=== PATIENT | female | born 1975 | race African-American/Black ===

== ENCOUNTER 2018-01-06 16:52 | Day surgery (SDC) | payer OTHER ==
[2018-01-03 17:06] LABS: Absolute Monocytes 0.4 K/uL (0.1-1.3); Absolute Neutrophil 3.1 K/uL (1.8-8.0); Eosinophils % 3.8 % (0-4.4); Hematocrit 32.8 % (36.0-45.0); Lymphocytes % 35.1 % (15.3-44.8); MCH 14.8 pg (27.0-35.0); MCV 56.2 fL (80-100); MPV 10.2 fL (7.6-11.3); Monocytes % 7.4 % (3.3-12.3); RBC Red Blood Cell Count 5.84 M/uL (3.86-4.86)
[2018-01-03 17:11] LABS: BUN Blood Urea Nitrogen 7 mg/dL (6-20); Bicarbonate 26 mEq/L (21-31); Glomerular Filtration Rate > 90 mL/min (=/>90); Glucose Level 107 mg/dL (65-120); Potassium 3.9 mEq/L (3.6-5.0); Sodium Level 140 mEq/L (135-145)
[2018-01-03 17:36] LABS: Urine Appearance CLEAR; Urine Bilirubin NEGATIVE (NEG); Urine Blood 3+ (NEG); Urine Color YELLOW; Urine Glucose NEGATIVE (NEG); Urine Protein TRACE (NEG); Urine Specific Gravity >=1.030 (1.005-1.030)
[2018-01-03 17:41] LABS: Urine Microscopic Reflex ORDER UMIC
[2018-01-03 18:15] LABS: Urine Bacteria <20 /HPF (<20); Urine Culture Reflex Order NOT NEEDED; Urine Mucus SLIGHT /HPF (NONE SEEN); Urine RBC >50 /HPF (NONE SEEN)
[2018-01-03 19:38] LABS: Platelet Estimate ADEQ
[2018-01-03 19:39] LABS: Anisocytosis 3+; Blood Morphology Comment NOTED (NOT SEEN); Hypochromasia 3+; Ovalocytes 1+
[2018-01-06] MEDS: NA CHLORIDE 0.9% 1,000 ML ONE ×2 (07:31→07:55)
[2018-01-06] MEDS: CEFAZOLIN/SWI 1gm 1 GM/10 ML SYR ONE ×2 (07:31→07:40)
[2018-01-06] MEDS: MEPERIDINE HCL 50 MG/ML AMP ONE ×2 (12:41→12:47)
[2018-01-06 13:24] LABS: Hematocrit 31.6 % (36.0-45.0)
[2018-01-06 15:33] LABS: Hematocrit 31.9 % (36.0-45.0)
[2018-01-06 16:00] VITALS: O2SAT 99
[~2018-01-06 16:52] MED LIST: ALBUMIN HUM 5% 250 ML IV ONE; CEFAZOLIN SODIUM 1 GM/VIAL ONE; DEXAMETHASONE 10 MG/ML VIAL ONE; FENTANYL CITR 100 MCG/2 ML ONE; FENTANYL CITR 250 MCG/5 ML ONE; GLYCOPYRROLATE 0.2 MG/ML SYR ONE; HYDROCODONE/APAP 5/325 MG TAB ONE; IBUPROFEN 200 MG TAB PO ONE; KETOROLAC 30 MG/ML INJ ONE; LABETALOL 20 MG/4ML SYRINGE IV ONE; LIDOCAINE 2% MPF 5 ML VIAL ONE; MEPERIDINE HCL 25 MG/0.5 ML ONE; MIDAZOLAM HCL 2 MG/2 ML INJ ONE; MORPHINE 10 MG/ML VIAL ONE; Mastisol Adhesive Liq ONE; NA CHLORIDE 0.9% 1,000 ML ONE; NEOSTIGMINE 1 MG/ML -5 ML SYRINGE ONE; ONDANSETRON 4 MG/2 ML VIAL ONE; PROPOFOL 200 MG/20 ML VIAL IV ONE; ROCURONIUM 50 MG/5 ML VIAL IV ONE; Ringers Lactate 1,000 ML IV ONE; SCOPOLAMINE HYDROBROMIDE PATCH TD ONE
[2018-01-06] MEDS ORDERED: IBUPROFEN 200 MG TAB PO PRN (17:17)
[2018-01-06] MEDS ORDERED: PROMETHAZINE 25 MG/ML VIAL IV PRN (17:18)
[2018-01-06] MEDS ORDERED: PROMETHAZINE 25 MG TABLET PO PRN (17:18)
[2018-01-06] MEDS ORDERED: MEPERIDINE HCL 50 MG/ML AMP IV PRN (17:19)
[2018-01-06] MEDS ORDERED: HYDROCODONE/APAP 5/325 MG TAB PO PRN ×2 (17:20)
[2018-01-06 17:30] VITALS: BMI 29.0
[2018-01-06 21:32] LABS: Hematocrit 33.7 % (36.0-45.0)
[2018-01-07 03:28] LABS: Hematocrit 30.1 % (36.0-45.0)
--- NOTE | 2018-01-07 05:24 | OP ---
Date of Procedure: 01/06/2018 Surgeon: Tiffany Hall MD Preoperative Diagnoses: Heavy menstrual bleeding, large fibroids, severe anemia, chronic blood loss anemia. Postoperative Diagnoses: Heavy menstrual bleeding, large fibroids, severe anemia, chronic blood loss anemia, and bilateral tubo-ovarian adhesions to the sigmoid colon and omental adhesions to the anter ior abdominal wall. Procedures Performed: Total laparoscopic hysterectomy, bilateral salpingectomy, lysis of omental and sigmoid adhesions from the tubes and ovaries, mini laparotomy to remove the uterine specimen using m anual morcellation in a bag, and cystoscopy. Specimens: Uterus and tubes. Complications: No complications. Drains: No drains. Estimated Blood Loss: 300. One unit of PRBC given since the patient's baseline hemoglobin was 8 g. Urine Output: 400 mL. Condition: Stable. Findings: There were adhesions of the omentum to the anterior abdominal wall and immediately inferio r to the umbilicus in the midline, then there were adhesions of the tubes and ovaries, dense between the tube and ovary and ovary and the lateral wall as well as the sigmoid colon. The entire cul-de-sa c had dense adhesions and all these adhesions had to be taken down even before the procedure was init iated. Manual morcellation was performed in a bag without any problems. The ovaries were retained. Cystosc opy of both ureteric orifices was patent. No evidence of any injury. Procedure In Detail: After informed consent was verified, the patient was taken back to the OR. Aft er 1 g of Ancef was given, she was placed in a dorsal lithotomy position. General anesthesia was ind uced. SCDs were started. The patient was placed in Juan Luis stirrups and pelvic exam performed, uterus about 18 weeks' size, mobile, appeared to have free space on both the lateral aspects as well as the cul-de-sac, so plan was to perform laparoscopic hysterectomy. Abdomen, vulva, vagina, and perineum were prepped and draped in a sterile fashion. Garcia was placed to drain the bladder and attached to cysto tubing for retrograde filling to an LR bag, emptied 300. A large VCare was fixed into place once a speculum was used to expose the cervix and anterior lip gra sped with 2 Allis clamps. Then, all instruments were removed and this area was then draped. A 1 cm supraumbilical incision was made with the scalpel using the open laparoscopy technique. Fasci a was visualized, incised, and tagged on each side. The peritoneum was opened up and the peritoneal entry with S retractors was used to position the Lovely. Site of entry was checked and was normal. Liver appeared to be unremarkable. On T-michell, there was a large uterus that was visible right there. Then, she also had omental adhesions below the umbilicus and these had to be taken down. So, a 5 m m right lower quadrant port was placed using the 5-mm LigaSure through the center and the camera thro ugh the left port. The adhesions were taken down in a systematic fashion with the help of scissors a nd by bipolar LigaSure. A 5 mm left lower quadrant and 10 mm suprapubic ports were placed under direct vision. The ureters w ere checked on both sides. They did not have any appearance of displacement; however, there were adh esions on both sides. In order for me to even visualize the ureter on the left side, I had to take d own the adhesions of the tube and the ovary. So, a 5 mm right lower quadrant port was placed. Obvio usly, after all the ports were placed, the adhesions were taken down by push-spread technique, holdin g the adhesion up along with the tube and cutting down with scissors. Sharp dissection was performed to separate this from the posterior wall of the uterus, lateral wall of the pelvis, and medially to the sigmoid colon. Once these were taken down on the left side, then the ureter was visualized and t hen we moved on to the opposite side. Then, here the tube was picked up. The adhesions were taken d own sharply with the help of scissors as well as the ovary picked up and the adhesions taken down fro m the lateral aspect of the pelvic sidewall and posterior aspect of the broad ligament. There were a dhesions in posterior cul-de-sac to the sigmoid colon. These were not taken down yet. Once the uret er was visualized on the right lateral wall, then we went on to start the hysterectomy after visualiz ing the anterior and posterior cuff. The posterior cuff adhesions were taken down partly with the he lp of push-spread technique and sharp laparoscopic scissors, but since there was good visualization t ill that aspect, I did spontaneously started the hysterectomy. A 5-mm LigaSure was taken. The left round ligament was divided and cut. The mesosalpinx was taken d own from the distal fallopian and the fimbriated end of the tube and the entire tube was dissected an d given out in 2 separate segments. Then, the utero-ovarian ligament was lifted up, cauterized, cut. The rest of the mesosalpinx was cauterized and cut. The anterior leaf of the broad ligament was ra ised to raise the bladder flap all around. Posteriorly, the bladder flap was raised to the level of the left uterosacral ligament and left here, since there were dense adhesions and this was difficult to dissect, but the vessels were skeletonized through the broad ligament with the LigaSure and well v isualized. On the opposite side, the right utero-ovarian ligament was first taken down, then the tub e and the mesosalpinx were cut. Then, the round ligament was taken down. Here, there was some bleed ing from the base of the round ligament. However, after taking the round ligament down from top down , this bleeding had stopped. Then, after the anterior repair was opened up, the anterior peritoneum spread apart. With push-spread technique gently, the bladder flap on the opposite side was connected . Posteriorly, the incision was carried to the right uterosacral easily without any problems the peritoneum. However, on the left side there were more adhesions. This made it difficult for me to just dissect the peritoneum. However, this was done to the level of the uterosacral so that the ureter would fall away. Once all this was nicely laid out, then anterior vaginal wall was incised. The areolar tissue in the anterior vaginal wall was cauterized with the monopolar and got into the ve sicovaginal space. Once this was entered, the bladder was pushed down inferiorly about 3 cm to expos e the cuff. The vessels on both sides were isolated and identified. Then with the help of the monopolar, I was a ble to make a window and then the vessels were taken down on the right side first in multiple bites. Then, on the left side, similar attempt was done. However, after the uterine vessel was taken down, there was more pushing and retraction probably due to the size of the vessels, likely the vessels op ened up, so these were picked up and two 5 mm clips were placed from medial to lateral and there was excellent hemostasis. After this, this is where blood loss happened. On the right side, the cardinal ligaments were taken down as well as the uterosacral attachment and o n the left side, the cardinal ligaments were taken down with the help of the LigaSure in small bites. Once all the vessels were taken down, did have a good visualization of the entire cuff, so this was opened up with the help of a monopolar hook blade. The specimen detached and placed in the right lo wer quadrant. The vaginal cuff was thoroughly irrigated and suctioned. The left tube was already re moved, so the attention was directed to remove the right tube. Once this tube was held up and entire ly removed from its fimbriated end to the distal part of where the dissection was performed, then thi s was removed, both ovaries appeared to be completely unremarkable. Everything else looked completel y hemostatic. There was a small clot on the right lateral wall; however, this on multiple attempts t o irrigate and remove the clot did not rebleed. The vaginal cuff was closed with the help of simple 0 Vicryl stitches on both edges and 3 figure-of-e ights in the middle including healthy posterior wall and anterior wall and [id number]-[id number] without c ausing strangulation. Once these were all done, there was excellent support of the vaginal cuff. A cystoscopy was performed with a 30-degree lens, normal saline, and 17-Mohawk sheath. Both ureteric orifices were well visualized and there were good streams of urine from both. No evidence of any tr auma to the bladder. So, at this point, vaginal morcellation was done. The bag was inserted for vaginal morcellation. The bag was inserted after opening of the skin incision. Vaginal incision and the abdominal incision were extended from 1 to 3 cm. The bag was inserted through here in the suprapubic area. Then, the trocar was replaced. Then, insufflation was maintained and the specimen was manipulated into the bag and the rim of the bag was pulled out after the trocar was removed at the suprapubic site. The trocars were all removed under direct vision. Fascia at the umbilicus closed with 0 Vicryl in a fekhhg-gd-iimpt fashion. All the skin incisions closed with the help of interrupted 4-0 Vicryl sutur es. In the suprapubic area, the incision on the fascia was extended as well as the peritoneum. Then, the bag was turned down using the skin guard. We went on to do an open morcellation through the mini-la parotomy incision. All the specimen was removed. There was a lot of blood contained within the uter us as well, probably at least 300 to 500 mL. The specimen was once removed, the bag was removed. The fascia was closed with 0 Vicryl in a figure- of-eight fashion after closing the peritoneum with 3-0 Vicryl in a continuous running fashion. The s kin closed with continuous 4-0 Vicryl sutures and interrupted 4-0 Vicryl sutures with all over the in cisions. Instrument, needle, and sponge counts were done after the Garcia, VCare bulb, and the vagina l bulb were removed. They were correct x3. She tolerated the procedure well. She was recovered fro m anesthesia and taken to PACU in stable condition. She will follow up with me in 1 week. She got 1 unit of blood transfusion and 400 cc of urine output. ROHAN/RUBÉN Voice ID: [id number] Report ID: [id number]
[2018-01-07 08:02] VITALS: BP 116/79; TEMP 98.3
== END 2018-01-07 07:50 | disposition home or self-care (01) ==
LOC: OP 16:52 → 2ND-WC 16:52 → OP 01-07 07:50
PROVIDERS: ATTEND Obstetrics & Gynecology
PROC: 0UT94ZZ Resection of Uterus, Percutaneous Endoscopic Approach (ICD-10-PCS; 2018-01-06)
PROC: 0UT74ZZ Resection of Bilateral Fallopian Tubes, Percutaneous Endoscopic Approach (ICD-10-PCS; 2018-01-06)
PROC: 0DNW4ZZ Release Peritoneum, Percutaneous Endoscopic Approach (ICD-10-PCS; 2018-01-06)
PROC: 30233N1 Transfusion of Nonautologous Red Blood Cells into Peripheral Vein, Percutaneous Approach (ICD-10-PCS; principal; 2018-01-06 07:30)
DX: N92.1 Excessive and frequent menstruation with irregular cycle (principal); D25.9 Leiomyoma of uterus, unspecified; D64.9 Anemia, unspecified; K66.0 Peritoneal adhesions (postprocedural) (postinfection); N83.8 Other noninflammatory disorders of ovary, fallopian tube and broad ligament; I10 Essential (primary) hypertension; Z83.3 Family history of diabetes mellitus
CPT/HCPCS: 36415; 36430; 80048; 81003; 81015; 81025; 85014; 85018; 85025; 86850; 86900; 86901; 88307; J0690; J1100; J2175; J2250; J2405; J2710; J3010; J7030; P9016; P9045

== ENCOUNTER 2021-01-15 22:51 | Emergency (ER) | payer OTHER ==
--- OUTSIDE RECORDS SUMMARY | 2021-01-15 22:54 | XMS REPORT | Continuity of Care Document ---
:1975 Author Organization [facility] t Address [address] [place] [address] [place] [id number] Care Team Providers Name Role Phone Ernie LECHUGA, K.H. Attending Clinician Problems This patient has no known problems. Allergies, Adverse Reactions, Alerts This patient has no known allergies or adverse reactions. Medications This patient has no known medications. Procedures This patient has no known procedures. Encounters Start End Encounter Admission Attending Care Care Encounter Source Date/Time Date/Time Type Type Clinicians Facility Department ID 2020-11-12 2020-11-12 Office Ernie LALALA [id number] 13:52:05 14:36:36 Visit Linda Castillo [id number] [place] [id number] [place] [id number] [place] 0[address] Building Results This patient has no known results.
[2021-01-16] MEDS ORDERED: IBUPROFEN 400 MG TAB ONE (00:36)
[2021-01-16] MEDS ORDERED: LIDOCAINE 1% W/EPI 1:100,000 MDV 20 ML VIAL ONE (00:36)
[2021-01-16] MEDS ORDERED: ACETAMINOPHEN 500 MG TAB ONE (00:42)
[2021-01-16 00:54] LABS: Absolute Lymphocytes (CBC) 1.2 K/uL (0.7-4.9); Basophils % 0.5 % (0-1.3); Hematocrit 39.3 % (36.0-45.0); Lymphocytes % 20.1 % (15.3-44.8); MPV 10.2 fL (7.6-11.3); RBC Red Blood Cell Count 5.51 M/uL (3.86-4.86)
[2021-01-16 01:05] LABS: ALT/SGPT 23 U/L (12-78); AST/SGOT 14 U/L (15-37); Albumin 3.5 g/dL (3.4-5.0); Alkaline Phosphatase 48 U/L (45-117); BUN Blood Urea Nitrogen 7 mg/dL (7-18); Bicarbonate 27 mmol/L (21-32); Bilirubin Total 0.2 mg/dL (0.2-1.0); Glucose Level 103 mg/dL (74-106); Potassium 3.8 mmol/L (3.5-5.1); Protein, Total 7.7 g/dL (6.4-8.2); Sodium Level 146 mmol/L (136-145)
--- NOTE | 2021-01-16 01:19 | EDPHYS ---
Physician Documentation [facility] Name: Di Wynn Age: 45 yrs Sex: Female : 1975 Arrival Date: 01/15/2021 Time: 22:52 Bed 3 Private MD: ED Physician Vivek Ashford HPI: 01/15 23:34 This 45 yrs old Black Female presents to ER via Wheelchair with complaints of Head jmm Injury With LOC-Adult, Fall Injury, Laceration To Head. 23:34 The patient or guardian reports injury. Onset: The symptoms/episode began/occurred jmm acutely, just prior to arrival. Associated signs and symptoms: Loss of consciousness: This patient experience a loss of consciousness, Pertinent positives: patient admits to or smells of alcohol consumption, Pertinent negatives: the patient has not experienced a loss of conciousness. The patient has not experienced similar symptoms in the past. ROUTE AIDE: 23:26 LMP N/A - Hysterectomy em Historical: - Allergies: 23:26 No Known Allergies; em - PMHx: 23:26 Hypertension; em - PSHx: 23:26 Hysterectomy; em - Immunization history:: Last tetanus immunization: up to date. - Social history:: Smoking status: Patient denies any tobacco usage or history of. ROS: 23:34 Constitutional: Negative for fever, chills, and weight loss, Cardiovascular: Negative jmm for chest pain, palpitations, and edema, Respiratory: Negative for shortness of breath, cough, wheezing, and pleuritic chest pain. 23:34 Neuro: Positive for headache. 23:34 All other systems are negative. Exam: 23:34 Eyes: EOMI, no conjunctival erythema appreciated ENT: Moist Mucus Membranes Neck: jmm Trachea midline, Supple Chest/axilla: Normal chest wall appearance and motion. Cardiovascular: Regular rate and rhythm. No edema appreciated Respiratory: Normal respirations, no respiratory distress appreciated Abdomen/GI: Non distended, soft Back: Normal ROM Skin: General appearance color normal MS/ Extremity: Moves all extremities, no obvious deformities appreciated, no edema noted to the lower extremities Neuro: Awake and alert, normal gait Psych: Behavior is normal, Mood is normal, Patient is cooperative and pleasant 23:34 Head/face: Noted is a laceration(s), that is jagged, 2 cm(s). Vital Signs: 23:23 Pulse 94; Resp 18; Temp 98.5; Pulse Ox 99% on R/A; Weight 84.82 kg; Height 5 ft. 2 in. em (157.48 cm); Pain 7/10; 01/16 00:15 BP 131 / 90; Pulse 90; Resp 16; Pulse Ox 98% ; rr5 00:42 BP 131 / 90; Pulse 84; Resp 14; Pulse Ox 100% on R/A; rv 02:28 BP 156 / 94; Pulse 80; Resp 15; Temp 98.3; Pulse Ox 96% ; rr5 04 23:23 Body Mass Index 34.20 (84.82 kg, 157.48 cm) em Luis Antonio Coma Score: 00:05 Eye Response: spontaneous(4). Verbal Response: oriented(5). Motor Response: obeys rr5 commands(6). Total: 15. 02:28 Eye Response: spontaneous(4). Verbal Response: oriented(5). Motor Response: obeys rr5 commands(6). Total: 15. Trauma Score (Adult): 02:28 Eye Response: spontaneous(1); Verbal Response: oriented(1); Motor Response: obeys rr5 commands(2); Systolic BP: > 89 mm Hg(4); Respiratory Rate: 10 to 29 per min(4); Luis Antonio Score: 15; Trauma Score: 12 MDM: 01/15 23:[address] [facility] 01/16 01:15 Data reviewed: vital signs, nurses notes. Counseling: I had a detailed discussion with [facility] the patient and/or guardian regarding: the historical points, exam findings, and any diagnostic results supporting the discharge/admit diagnosis, radiology results, the need to transfer to another facility. ED course: I discussed the patient with Neurosurgery at [facility] whom accepted admission. . 01/16 00:21 Order name: CBC with Diff; Complete Time: 01:19 [facility] 01/16 00:21 Order name: CMP; Complete Time: 01:19 [facility] 01/16 00:23 Order name: Type And Screen; Complete Time: 01:39 [facility] 01/16 01:28 Order name: Urine --Ancillary (enter results) tt3 01/16 01:28 Order name: Urine Dipstick-Ancillary [facility] 01/15 23:34 Order name: CT Head C Spine [facility] 01/16 00:21 Order name: Saline Lock; Complete Time: 00:40 [facility] 01/16 02:21 Order name: Alcohol Serum/Plasma [facility] 01/16 02:30 Order name: SARS-COV-2 RT PCR [facility] 01/16 02:30 Order name: ETOH Level [facility] 01/16 01:08 Order name: Suture Tray at Bedside; Complete Time: 01:08 rr5 01/16 01:08 Order name: Dressing - Wound; Complete Time: :08 rr5 01/16 01:08 Order name: Gloves, Sterile; Complete Time: :08 rr5 Administered Medications: 00:40 Drug: Tylenol 1000 mg Route: PO; rr5 01:40 Follow up: Response: No adverse reaction rr5 01:08 Drug: Lidocaine-Epinephrine -1%: (1:100,000) 10 ml {Note: given by gabi MAGDALENO.} Volume: 20 rr5 ml; Route: Infiltration; 02:00 Follow up: Response: No adverse reaction rr5 Disposition: 08:21 Co-signature as Attending Physician, Vivek Ashford MD. debby Disposition: 01/16/21 01:18 Transfer ordered to [facility]. Diagnosis is Subarachnoid Hermorrhage. - Reason for transfer: Higher level of care. - Accepting physician is [facility] Neurosurgery. - Condition is Stable. - Problem is new. - Symptoms are unchanged. Signatures: Dispatcher [employer] Vivek Chau MD MD pkl Mickail, Joel, PA PA Matt Crook, RN RN Charles Carballo, RN RN rr5 Corrections: (The following items were deleted from the chart) 01:48 00:40 CORONAVIRUS+MR.LAB.BRZ ordered. [facility] 02:32 01:18 01/16/2021 01:18 Transfer ordered to [facility]. Diagnosis is Subarachnoid rr5 Hermorrhage. Reason for transfer: Higher level of care. Accepting physician is [facility] Neurosurgery. Condition is Stable. Problem is new. Symptoms are unchanged. [facility]
--- NOTE | 2021-01-16 01:19 | ER ---
Nurse's Notes [facility] Name: Di Wynn Age: 45 yrs Sex: Female : 1975 Arrival Date: 01/15/2021 Time: 22:52 Bed 3 Private MD: Diagnosis: Subarachnoid Hermorrhage Presentation: 01/15 23:23 Chief complaint: Patient states: reports losing footing and fell and hit back of head, em pt does recall events, bystanders reports LOC of 5 seconds, denies N/V. Coronavirus screen: Client denies travel out of the [place] in the last 14 days. Ebola Screen: Patient negative for fever greater than or equal to 101.5 degrees Fahrenheit, and additional compatible Ebola Virus Disease symptoms Patient denies exposure to infectious person. Patient denies travel to an Ebola-affected area in the 21 days before illness onset. No symptoms or risks identified at this time. Initial Sepsis Screen: Does the patient meet any 2 criteria? No. Patient's initial sepsis screen is negative. Does the patient have a suspected source of infection? No. Patient's initial sepsis screen is negative. Risk Assessment: Do you want to hurt yourself or someone else? Patient reports no desire to harm self or others. Onset of symptoms was January 15, 2021. 23:23 Method Of Arrival: Wheelchair em 23:23 Acuity: WAI 3 em 01/16 00:05 Care prior to arrival: None. Mechanism of Injury: Fall from standing position. Trauma rr5 event details: Injury occurred in the [facility], Injury occurred: at home. Injury occurred: January 16, 2021. 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 - Social history:: Smoking status: Patient denies any tobacco usage or history of. Screenin/08 00:10 Abuse screen: Denies threats or abuse. Denies injuries from another. Nutritional rr5 screening: No deficits noted. Tuberculosis screening: No symptoms or risk factors identified. Fall risk At risk due to injury, Intervention for positive screen: ED Physician notified. 00:10 Exposure risk/Travel Screening: None identified. rr5 01:10 Fall Risk Fall in past 12 months (25 points). IV access (20 points). Mental Status- rr5 Oriented to own ability (0 pts). Total Garcias Fall Scale indicates High Risk Score (45 or more points). Fall prevention measures have been instituted. Side Rails Up X 2 Frequent Obs/Assessments Occuring Family Present and informed to notify staff if the need to leave the bedside As available patient and family educated on Fall Prevention Program and Strategies. Primary Survey: 00:05 NO uncontrolled hemorrhage observed. A: The patient is alert. Airway: patent, Oral rr5 cavity: clear, gag reflex present, Trachea midline. 00:05 Breathing/Chest: Respiratory pattern: regular, Respiratory effort: spontaneous, rr5 unlabored, Breath sounds: clear, Chest inspection: symmetrical rise and fall of the chest. Circulation: Skin color: pink. Disability Alert. Exposure/Environment: There is no evidence of uncontrolled external bleeding. Obvious injury(ies) are noted at this time: lacerated wound back of the head A warming method has been applied: A warm blanket has been provided to the patient. 00:42 Reassessment Airway Airway Patent Breathing/Chest Respiratory pattern Regular rr5 Respiratory effort Spontaneous Unlabored Chest inspection Symmetrical Circulation Pulses Palpable Color [place] Disability Alert. Secondary Survey: 00:30 HEENT: Head Other lacerated wound back of the head. Gastrointestinal: Abdomen is soft. rr5 : No signs and/or symptoms were reported regarding the genitourinary system. Musculoskeletal: Capillary refill < 3 seconds. Assessment: 00:05 General: Appears in no apparent distress. Behavior is drowsy, patient wants to leave. rr5 encouraged by the family member to stay. explained the waiting time for the CT result.. Pain: Complains of pain in scalp Quality of pain is described as aching, Pain began suddenly, Is intermittent. Neuro: Level of Consciousness is awake, alert, obeys commands, Oriented to person, place, time. Cardiovascular: Capillary refill < 3 seconds Patient's skin is warm and dry. Respiratory: Airway is patent Respiratory effort is even, unlabored, Respiratory pattern is regular, symmetrical. GI: No signs and/or symptoms were reported involving the gastrointestinal system. : No signs and/or symptoms were reported regarding the genitourinary system. EENT: No signs and/or symptoms were reported regarding the EENT system. Derm: Skin temperature is warm Wound noted scalp Wound is lacerated wound. Musculoskeletal: Capillary refill < 3 seconds. 00:35 Reassessment: reassess by ED provider explained the CT result and planning for transfer rr5 to other facility. 01:58 Reassessment: Patient appears in no apparent distress at this time. [facility] staff [facility] report given and accepted the case. 02:10 Reassessment: patient is uncooperative not following commands. demands she wants to see rr5 her CTscan, showed the CT pictures in the computer screen. 02:29 Reassessment: Patient appears in no apparent distress at this time. Patient is alert, rr5 oriented x 3, equal unlabored respirations, skin warm/dry/pink. report given to [facility] awake alert vital signs taken and recorded with IV cannula intact. Vital Signs: 01/15 23:23 Pulse 94; Resp 18; Temp 98.5; Pulse Ox 99% on R/A; Weight 84.82 kg; Height 5 ft. 2 in. em (157.48 cm); Pain 7/10; 08 00:15 BP 131 / 90; Pulse 90; Resp 16; Pulse Ox 98% ; rr5 00:42 BP 131 / 90; Pulse 84; Resp 14; Pulse Ox 100% on R/A; rv 02:28 BP 156 / 94; Pulse 80; Resp 15; Temp 98.3; Pulse Ox 96% ; rr5 01/15 23:23 Body Mass Index 34.20 (84.82 kg, 157.48 cm) em Luis Antonio Coma Score: 00:05 Eye Response: spontaneous(4). Verbal Response: oriented(5). Motor Response: obeys rr5 commands(6). Total: 15. 02:28 Eye Response: spontaneous(4). Verbal Response: oriented(5). Motor Response: obeys rr5 commands(6). Total: 15. Trauma Score (Adult): 02:28 Eye Response: spontaneous(1); Verbal Response: oriented(1); Motor Response: obeys rr5 commands(2); Systolic BP: > 89 mm Hg(4); Respiratory Rate: 10 to 29 per min(4); [place] Score: 15; Trauma Score: 12 ED Course: 01/15 22:52 Patient arrived in ED. bp1 23:24 Gabi Glass PA is PHCP. jmm 23:24 Vivek Crowley MD is Attending Physician. jmm 23:25 Triage completed. em 23:26 Arm band placed on. em 23:39 Charles Rothman, LIZA is Primary Nurse. rr5 23:56 CT Head C Spine In Process Unspecified. EDMS 01/16 00:05 Thermoregulation: warm blanket given to patient. rr5 00:15 Patient has correct armband on for positive identification. Bed in low position. Call rr5 light in reach. 00:15 Pulse ox on. NIBP on. rr5 00:22 Initiated transfer at [facility] with Liset. Was informed the request would be tt3 denied due to capacity. 00:27 Initiated transfer at [facility] with Meena Aguila. Stated they were at capacity for tt3 tele beds at all campuses so they would have to deny the transfer request. 00:33 Initiated transfer at [facility] with Breanna Peterson. Stated she would do a bed check and call tt3 back. 00:40 Inserted saline lock: 18 gauge in left forearm, using aseptic technique. Blood rr5 collected. 00:49 Breanna Peterson called back from [facility] to speak with RASTA James, provider of pt. Gabi wallace3 was connected to their physician for consultation. 01:09 Assist provider with laceration repair on back of head that was 2.5 cm. or less using rr5 dayana. Set up tray. Performed by Gabi MAGDALENO Dressed with Neosporin, Patient tolerated well. 01:11 Patient maintains SpO2 saturation greater than 95% on room air. rr5 01:40 Crystal Peterson gave admin approval. The pt is going to 8. Nurse to call report to tt3 . Face sheet and MOT faxed to per Crystal's request. The accepting physician is Dr. Kwan. 02:13 Patient transferred, IV remains in place. intact, No redness/swelling at site. rr5 Administered Medications: 00:40 Drug: Tylenol 1000 mg Route: PO; rr5 01:40 Follow up: Response: No adverse reaction rr5 01:08 Drug: Lidocaine-Epinephrine -1%: (1:100,000) 10 ml {Note: given by gabi MAGDALENO.} Volume: 20 rr5 ml; Route: Infiltration; 02:00 Follow up: Response: No adverse reaction rr5 Intake: 02:28 voided rr5 Output: 02:28 Other: 1; Total: 0ml. rr5 02:28 voided rr5 Outcome: 01:18 ER care complete, transfer ordered by . danielle 02:30 Transferred by ground EMS to [facility], Transfer form rr5 completed. 02:30 Condition: stable 02:30 Instructed on the need for transfer. 02:31 Patient's length of stay was not longer than 2 hours. rr5 02:32 Patient left the ED. rr5 Signatures: Dispatcher [employer] EDMS Gabi Glass PA PA jmm Munoz, Edgar, RN RN Cristobal Epps RN RN Charles Waters, RN RN rr5 Kayla Lei Tyler tt3
[2021-01-16 01:28] LABS: Urine Blood Trace-lysed (Negative); Urine Glucose Negative (Negative); Urine Protein Negative (Negative); Urine Specific Gravity >=1.030 (1.005-1.030)
[2021-01-16 05:31] LABS: Urine Specific Gravity/Preg >1.030 (1.005-1.030)
--- NOTE | 2021-01-16 11:10 | RAD REPORT ---
EXAM DESCRIPTION: CT - Head C Spine Mpr Wo Con - 01/16/2021 2:36 am CLINICAL HISTORY: Head injury. TECHNIQUE: Axial, coronal, and sagittal images through the brain were performed in the absence of in travenous contrast. CT of the cervical spine was performed without contrast. Axial, coronal, and sagi ttal reconstructions were created and sent to PACS. These exams were performed according to our depar tmental dose-optimization program which includes use of Automated Exposure Control, adjustment of the mA and/or kV according to patient size and/or use of iterative reconstruction technique. COMPARISON: None. FINDINGS: CT Head: Two small adjacent high density regions about the right sylvian fissure in the t emporal lobe (axial images nine and 10, coronal image 30), measuring 1.2 x 1.8 cm and 0.3 x 1 cm, lik reyna acute subarachnoid hemorrhage. No midline shift. The basal cisterns are patent. There is no mass or mass effect. The ventricles are normal in size shape and configuration. The orbital contents appea r unremarkable. The visualized paranasal sinuses and mastoid air cells are patent. No fracture is jude ntified.CT cervical spine: No acute osseous abnormality identified. Vertebral body height and alignm ent are maintained. No atlantodental interval widening. Atlantoaxial alignment is maintained. Multile levon small posterior disc osteophyte complexes throughout the cervical spine with no significant centr al canal or neuroforaminal narrowing.Paraspinal soft tissues: Unremarkable. IMPRESSION: 1. Two small adjacent foci of acute subarachnoid hemorrhage in the right temporal lobe about the sylvian fissure. No midline shift. The basal cisterns are patent. 2. No acute osseous abnormality of the cervical spine. Mild degenerative changes.THIS REPORT CONTAI NS FINDINGS THAT MAY BE CRITICAL TO PATIENT CARE: The findings were verbally discussed via telephone conference with physician executive personal assistant Wes Glass PA-C, on 01/16/2021 12:20 AM CDT. The results were a cknowledged and understood. Electronically signed by: Abbie Coppola MD 01/16/2021 12:22 AM CDT Due to temporary technical issues with the PACS/Fluency reporting system, reports are being signed by the in house radiologist without review as a courtesy to ensure prompt reporting. The interpreting r adiologist is fully responsible for the content of the report.
[2021-01-16 17:41] VITALS: BP 156/94; TEMP 98.3; O2SAT 96
== END 2021-01-16 02:32 | disposition short-term general hospital (02) ==
LOC: ER 22:51
PROC: 0JQ00ZZ Repair Scalp Subcutaneous Tissue and Fascia, Open Approach (ICD-10-PCS; principal; 2021-01-16)
DX: S06.6X0A Traumatic subarachnoid hemorrhage without loss of consciousness, initial encounter (principal); W18.39XA Other fall on same level, initial encounter; Y93.89 Activity, other specified; Y92.89 Other specified places as the place of occurrence of the external cause; Z20.822 Contact with and (suspected) exposure to COVID-19; I10 Essential (primary) hypertension
CPT/HCPCS: 85025; 36415; 80320; 86900; 86850; 81025; 86901; 81003; 80053; 70450; 72125; 99285; 12001; U0003